=== PATIENT | female | born 1950 | race Caucasian/White ===

== ENCOUNTER → 2019-11-07 09:25 | Outpatient (BNVA) | payer MEDICARE, SELFPAY | PROVIDERS: Family Provider Nurse Practitioner Family; Visit Provider Nurse Practitioner | DX: N30.10 Interstitial cystitis (chronic) without hematuria (principal) | CPT/HCPCS: 81003; 87086 ==

== ENCOUNTER → 2020-02-11 13:14 | Outpatient (BNVA) | payer MEDICARE, SELFPAY | PROVIDERS: Family Provider Nurse Practitioner Family; Visit Provider Nurse Practitioner | DX: N30.10 Interstitial cystitis (chronic) without hematuria (principal) | CPT/HCPCS: 81000 ==

== ENCOUNTER 2021-03-01 06:50 | Outpatient (CLI) | payer MEDICARE, SELFPAY ==
--- NOTE | 2021-03-01 07:03 | US_ITS ---
WS: [id number] ULTRASOUND ABDOMEN LIMITED CLINICAL INFORMATION: ABDOMINAL PAIN COMPARISON: None. FINDINGS: Liver Size: Enlarged Craniocaudal length: 16.3 cm. Echogenicity: Normal. Surface nodularity: None. Mass (size and location): None. Bile ducts Intrahepatic ducts: Normal. Common bile duct diameter: 0.3 cm. Gallbladder Contracted Gallstones: None. Gallbladder sludge: None. Gallbladder wall thickenin.2 mm Pericholecystic fluid: None. Sonographic Good sign: Absent. Pancreas Normal as visualized. Right kidney: Small simple right renal cyst measuring 9.8 x 6.6 x 8.8 mm Hydronephrosis: None. Size: 11.0 cm x 4.8 cm x 5.8 cm. Abdominal aorta and IVC Visualized portions are normal. Ascites: None. US/US gall bladder [id number] IMPRESSION: 1. Mild hepatomegaly. 2. Gallbladder is contracted. No cholelithiasis. Normal common bile duct. 3. No hydronephrosis in right kidney.
== END 2021-03-01 06:51 | disposition home or self-care (01) ==
PROVIDERS: Family Provider Nurse Practitioner Family; Visit Provider Surgery
DX: R10.11 Right upper quadrant pain (principal); R16.0 Hepatomegaly, not elsewhere classified
CPT/HCPCS: 76705

== ENCOUNTER → 2022-07-19 08:17 | Outpatient (BNVA) | payer MEDICARE, SELFPAY | PROVIDERS: Family Provider Nurse Practitioner Family; PCP Family Medicine; Visit Provider Family Medicine | DX: Z00.00 Encounter for general adult medical examination without abnormal findings (principal); E78.5 Hyperlipidemia, unspecified | CPT/HCPCS: 80053; 80061 ==

== ENCOUNTER → 2023-07-31 09:59 | Outpatient (BNVA) | payer MEDICARE, SELFPAY | PROVIDERS: Family Provider Nurse Practitioner Family; PCP Family Medicine; Visit Provider Family Medicine | DX: Z00.00 Encounter for general adult medical examination without abnormal findings (principal) | CPT/HCPCS: 80053; 80061 ==

== ENCOUNTER 2023-09-04 13:52 | Outpatient (CLI) | payer MEDICARE, SELFPAY ==
--- NOTE | 2023-09-04 14:30 | USCV_ITS ---
Rosy Lafleur Age: 72 Gender: F : 1950 Exam Date: 09/04/2023 14:45 Ordering Phys: Bal Dominguez MD Technologist: Kristyn Lopez [place] [facility] [place]: syncope, hx of valve issue BP: 142 / 82 HR: 86 Rhythm: Sinus Technical Quality: Adequate MEASUREMENTS (Male / Female) Normal Values 2D ECHO LV Diastolic Diameter PLAX 3.6 cm 4.2 - 5.9 / 3.9 - 5.3 cm LV Systolic Diameter PLAX 2.0 cm IVS Diastolic Thickness 1.0 cm 0.6 - 1.0 / 0.6 - 0.9 cm IVS Systolic Thickness 1.4 cm LVPW Diastolic Thickness 1.1 cm 0.6 - 1.0 / 0.6 - 0.9 cm LVPW Systolic Thickness 1.7 cm LVOT Diameter 2.2 cm LV Ejection Fraction 2D Teich 76.0 % LV Ejection Fraction MOD 2C 74.3 % LV Ejection Fraction 2C AL 78.2 % LA Diameter 3.2 cm LA Width 2.8 cm LA Height 4.2 cm RA Width 3.2 cm RA Height 4.0 cm Aorta at Sinotubular Diameter 2.8 cm IVC Diameter 1.5 cm M-MODE Aortic Annulus Diameter 2.8 cm LA Ao Ratio MM 1.1 MV E Point Septal Separation 0.5 cm DOPPLER AV Peak Velocity 103.0 cm/s LVOT Peak Velocity 114.0 cm/s AV Area Cont Eq vti 3.7 cm squared AV Area Cont Eq pk 4.2 cm squared MV Peak Velocity 90.0 cm/s MV Area PHT 3.1 cm squared Mitral E to A Ratio 0.6 MV E' Velocity 38.0 cm/s Mitral E to MV E' Ratio 9.6 Mitral E to LV E' Lateral Ratio 10.1 Mitral E to LV E' Septal Ratio 9.1 TR Peak Velocity 77.8 cm/s TR Peak Gradient 2.4 mmHg Right Atrial Pressure 5.0 mmHg Pulmonary Artery Systolic Pressu 7.4 mmHg PV Peak Velocity 73.0 cm/s RV Acceleration Time 0.1 s RV Ejection Time 0.3 s RV AcT/ET 0.4 FINDINGS Left Ventricle Normal left ventricular size, systolic function and wall thickness, with no regional wall motion abnormalities. Grade I/IV diastolic dysfunction (abnormal relaxation filling pattern), normal to mildly elevated filling pressures. Left ventricular ejection fraction is estimated at 60 %. Right Ventricle Normal right ventricular size and systolic function. Normal right ventricular systolic pressure. Right Atrium The right atrium is normal in size. Left Atrium The left atrium is normal in size. Mitral Valve Structurally normal mitral valve without significant stenosis or prolapse. There is no mitral regurgitation. Aortic Valve Aortic valve is not well-seen but is probably normal. There is no aortic stenosis. There may be mild aortic insufficiency. Tricuspid Valve Structurally normal tricuspid valve without significant stenosis or regurgitation. Pulmonary artery systolic pressure is normal. Pulmonic Valve Pulmonic valve not well visualized. Pericardium Normal pericardium without effusion. Aorta Normal ascending aorta dimension. IVC The inferior vena cava appears normal. CONCLUSIONS Normal left ventricular size, systolic function and wall thickness, with no regional wall motion abnormalities. Grade I/IV diastolic dysfunction (abnormal relaxation filling pattern), normal to mildly elevated filling pressures. Left ventricular ejection fraction is estimated at 60 %. Aortic valve is not well-seen but is probably normal. There is no aortic stenosis. There may be mild aortic insufficiency. There are no prior echocardiogram studies to compare. Dr. Kiko Ac MD (Electronically Signed) Final Date: 04 September 2023 16:23 S
== END 2023-09-04 13:53 | disposition home or self-care (01) ==
LOC: RAD 13:53
PROVIDERS: Family Provider Nurse Practitioner Family; PCP Family Medicine; Visit Provider Family Medicine
DX: R55 Syncope and collapse (principal); Z95.2 Presence of prosthetic heart valve
CPT/HCPCS: 93306

== ENCOUNTER → 2024-03-27 12:29 | Outpatient (BNVA) | payer MEDICARE, SELFPAY | PROVIDERS: Family Provider Nurse Practitioner Family; PCP Family Medicine; Visit Provider Clinical Nurse Specialist Adult Health | DX: I10 Essential (primary) hypertension (principal) | CPT/HCPCS: 80053; 84443 ==

== ENCOUNTER 2024-05-02 07:53 | Outpatient (CLI) | payer MEDICARE, SELFPAY ==
--- NOTE | 2024-05-02 08:07 | NMCV_ITS ---
NM jose m perf SPECT r/s* [id number] Rosy Lafleur Age: 73 Gender: F : 1950 Exam Date: 05/02/2024 08:07 Ordering Phys: Adria Welsh NP Technologist: JOSETTE Byrnes Exam Location: [facility] Indications: CP STRESS TEST Please see separate stress test report in [facility] for full findings IMAGE PROTOCOL Rest/Stress 1 Exercise Day Radiopharmaceutical Dose (mCi) Administration Site Administered by Rest: Tc-99m 10.5 IV JOSETTE Byrnes Sestamibi Stress:Tc-99m 32.6 IV JOSETTE Byrnes Sestamibi Rest: 02-May-2024 60 Discovery 630 Stress: 02-May-2024 15 Discovery 630 Radiopharmaceutical was injected at 89 % maximum heart rate. Images obtained in supine and prone position. SPECT RESULTS Technical Quality: Good Raw Data Analysis: Normal Image Corrections: No attenuation or motion correction applied Summed Stress Score: 0 Summed Rest Score: 0 Summed Difference Score: 0 PERFUSION FINDINGS SPECT images demonstrate homogeneous tracer distribution throughout the myocardium. FUNCTIONAL RESULTS (calculated via Gated SPECT) Stress Image LV EF (%): 78 Stress EDV (mL):55 TID: 0.77 Stress ESV (mL):12 FUNCTIONAL FINDINGS: There is normal left ventricular systolic function. IMPRESSIONS 1. Normal myocardial perfusion imaging with no evidence of ischemia 2. LV systolic function is normal Francisco Ahmadi MD (Electronically Signed) Final Date: 03 May 2024 13:13 Amended: 13 May 2024 11:05 C
--- NOTE | 2024-05-02 08:07 | ECG_ITS ---
[facility] Test Date: 2024-05-02 Pat Name: Rosy Lafleur Department: Room: Gender: Female [employer] Export Agent: : 1950 Requested By: Adria Salcido Order Number: [id number] Cecelia MD: Francisco Ahmadi M.D. Interpretive Statements NAME OF STUDY: EXERCISE SESTAMIBI STRESS TEST INDICATION: [Chest Pain, ] EXERCISE DATA: The patient was exercised by Dustin protocol. Baseline heart rate was 75 beats per minute. Baseline blood pressure was 119/73 millimeters of mercury. Maximal predicted heart rate was 149 beats per minute. Maximum heart rate achieved was 153, which was 102% of the maximum predicted heart rate. Maximum blood pressure was 166/84 millimeters of mercury. Total exercise time was 7 minutes 30 seconds. Maximum METs achieved was 10.2. The reason for ending the test was completion of protocol. The patient complained of shortness of breath during the stress test, which then resolved at the end of the test. ELECTROCARDIOGRAM: BASELINE: Showed sinus rhythm, normal axis, no significant ST-T changes at the baseline noted. [] EXERCISE: At the peak exercise level, [] No significant ST-T changes suggestive of ischemia noted. [] RECOVERY: During the recovery period, heart rate dropped appropriately. No significant ST-T changes in the recovery suggestive of ischemia noted. [] CONCLUSION: 1. Exercise capacity is good 2. Heart rate response was appropriate. 3. Blood pressure response was appropriate. 4. Symptoms not suggestive of ischemia. 5. Electrocardiogram portion of the stress test was not suggestive of ischemia. 6. Nuclear scan will be documented separately. Electronically Signed On 05-10-2024 14:26:28 CDT by Francisco Ahmadi M.D. [id number]
[2024-05-02 08:25] VITALS: BMI 30.8
[2024-05-02 09:54] VITALS: BP 140/81; PULSE 98
== END 2024-05-02 07:54 | disposition home or self-care (01) ==
PROVIDERS: PCP Family Medicine; Visit Provider Clinical Nurse Specialist Adult Health
DX: R07.9 Chest pain, unspecified (principal); R06.02 Shortness of breath
CPT/HCPCS: 36415; 78452; 93017; A9500

== ENCOUNTER → 2024-08-05 10:24 | Outpatient (BNVA) | payer MEDICARE, SELFPAY | PROVIDERS: PCP Family Medicine; Visit Provider Family Medicine | DX: Z00.00 Encounter for general adult medical examination without abnormal findings (principal); I10 Essential (primary) hypertension | CPT/HCPCS: 80053; 80061 ==

== ENCOUNTER → 2024-09-16 16:44 | Outpatient (BNVA) | payer MEDICARE, SELFPAY | PROVIDERS: PCP Family Medicine; Visit Provider Family Medicine | DX: I10 Essential (primary) hypertension (principal); J06.9 Acute upper respiratory infection, unspecified | CPT/HCPCS: 84550; 87400; 87426 ==

== ENCOUNTER → 2025-07-07 08:19 | Outpatient (BNVA) | payer MEDICARE, SELFPAY | PROVIDERS: PCP Family Medicine; Visit Provider Family Medicine | DX: Z00.00 Encounter for general adult medical examination without abnormal findings (principal); I10 Essential (primary) hypertension | CPT/HCPCS: 80053; 80061 ==